=== PATIENT | male | born 2000 | race Caucasian/White ===

== ENCOUNTER 2023-06-01 09:22 | Emergency (ER) | payer SELFPAY ==
[2023-06-01] MEDS ORDERED: Ketorolac Tromethamine 30 MG/ML VIAL ONE (09:56)
== END 2023-06-01 10:36 | disposition home or self-care (01) ==
LOC: ERS 09:22
DX: M77.8 Other enthesopathies, not elsewhere classified (principal); F17.200 Nicotine dependence, unspecified, uncomplicated
CPT/HCPCS: 96372; 99283; J1885

== ENCOUNTER 2024-07-18 11:00 | Emergency (ER) | payer SELFPAY ==
[2024-07-18] MEDS ORDERED: Ketorolac Tromethamine 30 MG (1 mL) VIAL ONE (11:44)
== END 2024-07-18 14:38 | disposition home or self-care (01) ==
LOC: ERS 11:00
DX: S62.111A Displaced fracture of triquetrum [cuneiform] bone, right wrist, initial encounter for closed fracture (principal); X58.XXXA Exposure to other specified factors, initial encounter
CPT/HCPCS: 29125; 96372; 99283; J1885